=== PATIENT | female | born 1935 | race African-American/Black ===

== ENCOUNTER 2019-09-01 08:00 | Emergency (ER) | payer OTHER ==
[~2019-09-01] VITALS: Ht 160 cm; Wt 50.0 kg
[2019-09-01] MEDS ORDERED: SODIUM CHLORIDE 0.9% 1000ML BAG (SEPSIS BOLUS) IV ONE (08:30)
[2019-09-01 09:13] LABS: HEMATOCRIT. 38.2 % (36.0-48.0); HEMOGLOBIN. 12.9 g/dL (12.0-16.0); MEAN CORPUSCULAR HEMOGLOBIN 29.2 pg (28.0-32.0); MEAN CORPUSCULAR VOLUME 86.5 fL (81.0-99.0); MEAN PLATELET VOLUME 8.7 fl (7.4-10.4); PLATELET 238 x1000/uL (130-400); RED BLOOD CELL COUNT 4.41 mill/uL (4.2-5.4); RED CELL DISTRIBUTION WIDTH 15.1 % (11.6-14.6)
[2019-09-01 09:20] LABS: CHLORIDE 101 mEq/L (98-107); PROTHROMBIN TIME 10.7 sec (9.6-11.0)
[2019-09-01 10:13] LABS: CLARITY URINE CLEAR (CLEAR); COLOR URINE YELLOW (YELLOW); KETONES URINE NEGATIVE (NEGATIVE); LEUKOCYTE ESTERASE URINE NEGATIVE (NEGATIVE); NITRITE URINE NEGATIVE (NEGATIVE); OCCULT BLOOD URINE NEGATIVE (NEGATIVE); PROTEIN URINE 1+ (NEGATIVE); SPECIFIC GRAVITY URINE 1.019 (1.005-1.030); UROBILINOGEN URINE 0.2 E.U./dL (0.2-1.0)
[2019-09-01 10:37] LABS: PLATELET ESTIMATE NORMAL
[2019-09-01] MEDS ORDERED: KETOROLAC 30MG/ML VIAL IV ONE (13:00)
[2019-09-01 13:52] VITALS: BP 136/68
== END 2019-09-01 13:47 | disposition short-term general hospital (02) ==
LOC: ER 08:00 → CANBEDREQ 09-02 03:14
DX: R62.7 Adult failure to thrive (principal); Z68.1 Body mass index [BMI] 19.9 or less, adult; R00.0 Tachycardia, unspecified
CPT/HCPCS: 36415; 71045; 80053; 81003; 83605; 84145; 84484; 85025; 85610; 87040; 87086; 93005; 96374; 99285; J1885; J7030